=== PATIENT | male | born 1955 | race African-American/Black ===

== ENCOUNTER 2016-10-28 00:02 | Emergency (ER) | payer MEDICAID ==
[~2016-10-28] VITALS: Ht 170.2 cm; Wt 82.0 kg
[2016-10-28] MEDS ORDERED: HYDROCODONE/ACETAMINOPHEN 5/325MG TABLET PO ONE (02:45)
[2016-10-28 03:00] LABS: EOSINOPHILS % 2.4 % (0.0-5.0); HEMATOCRIT. 41.7 % (42.0-52.0); HEMOGLOBIN. 14.5 g/dL (14.0-18.0); LYMPHOCYTES % 23.5 % (20.0-50.0); MEAN CORPUSCULAR HEMOGLOBIN 31.9 pg (28.0-32.0); MEAN CORPUSCULAR VOLUME 91.9 fL (80.0-94.0); MEAN PLATELET VOLUME 8.9 fl (7.4-10.4); MONOCYTES % 8.2 % (2.0-8.0); NEUTROPHILS % 64.9 % (40.0-76.0); PLATELET 230 x1000/uL (130-400); RED BLOOD CELL COUNT 4.54 mill/uL (4.7-6.1); RED CELL DISTRIBUTION WIDTH 13.7 % (11.6-14.6)
[2016-10-28 03:11] LABS: CARBON DIOXIDE 27 mEq/L (21-32); CHLORIDE 103 mEq/L (98-107)
[2016-10-28 05:29] VITALS: BP 115/77
== END 2016-10-28 05:30 | disposition home or self-care (01) ==
LOC: ER 00:03
DX: M79.672 Pain in left foot (principal); F17.200 Nicotine dependence, unspecified, uncomplicated
CPT/HCPCS: 36415; 73630; 80048; 85025; 93971; 99285; Z7610

== ENCOUNTER 2016-12-12 03:05 | Emergency (ER) | payer MEDICAID ==
[~2016-12-12] VITALS: Ht 172.7 cm; Wt 79.5 kg
[2016-12-12 08:17] VITALS: BP 122/82
[2016-12-12] MEDS ORDERED: LEVOFLOXACIN 500MG TABLET PO ONE (09:15)
== END 2016-12-12 09:47 | disposition home or self-care (01) ==
LOC: ER 03:10
DX: J18.9 Pneumonia, unspecified organism (principal); R03.0 Elevated blood-pressure reading, without diagnosis of hypertension; F17.210 Nicotine dependence, cigarettes, uncomplicated; F15.10 Other stimulant abuse, uncomplicated; F10.10 Alcohol abuse, uncomplicated; Z98.890 Other specified postprocedural states
CPT/HCPCS: 71010; 99283; Z7610

== ENCOUNTER 2017-03-21 19:33 | Emergency (ER) | payer MEDICAID ==
[~2017-03-21] VITALS: Ht 177.8 cm; Wt 88.0 kg
[2017-03-21] MEDS ORDERED: FLUORESCEIN SODIUM 1MG/STRIP OP ONE (20:45)
[2017-03-21] MEDS ORDERED: TETRACAINE 0.5% OPHTH DROPS 4ML OP ONE (20:45)
[2017-03-21] MEDS ORDERED: HYDROCODONE/ACETAMINOPHEN 10/325MG TABLET PO ONE (21:15)
[2017-03-22 00:15] VITALS: BP 125/85
== END 2017-03-22 00:55 | disposition home or self-care (01) ==
LOC: ER 19:47
DX: Z77.098 Contact with and (suspected) exposure to other hazardous, chiefly nonmedicinal, chemicals (principal); H57.8 Other specified disorders of eye and adnexa; J45.909 Unspecified asthma, uncomplicated; F15.10 Other stimulant abuse, uncomplicated; Z98.890 Other specified postprocedural states
CPT/HCPCS: 99284; A4217; J7030; Z7610

== ENCOUNTER 2017-03-22 02:25 | Emergency (ER) | payer MEDICAID ==
[~2017-03-22] VITALS: Ht 177.8 cm; Wt 88.0 kg
[2017-03-22] MEDS ORDERED: ONDANSETRON HCL 4MG/2ML VIAL IV STA (02:28)
[2017-03-22 02:51] LABS: BASOPHILS % 0.6 % (0.0-2.0); EOSINOPHILS % 2.9 % (0.0-5.0); HEMATOCRIT. 45.4 % (42.0-52.0); HEMOGLOBIN. 15.5 g/dL (14.0-18.0); LYMPHOCYTES % 28.1 % (20.0-50.0); MEAN CORPUSCULAR HEMOGLOBIN 31.7 pg (28.0-32.0); MEAN CORPUSCULAR VOLUME 92.9 fL (80.0-94.0); MEAN PLATELET VOLUME 8.7 fl (7.4-10.4); MONOCYTES % 10.7 % (2.0-8.0); NEUTROPHILS % 57.7 % (40.0-76.0); PLATELET 239 x1000/uL (130-400); RED BLOOD CELL COUNT 4.89 mill/uL (4.7-6.1)
[2017-03-22 03:00] LABS: CARBON DIOXIDE 30 mEq/L (21-32); CHLORIDE 103 mEq/L (98-107)
[2017-03-22 06:18] VITALS: BP 126/96
== END 2017-03-22 06:27 | disposition home or self-care (01) ==
LOC: ER 02:26
DX: R11.2 Nausea with vomiting, unspecified (principal); J45.909 Unspecified asthma, uncomplicated; F17.200 Nicotine dependence, unspecified, uncomplicated; F15.10 Other stimulant abuse, uncomplicated; Z98.890 Other specified postprocedural states
CPT/HCPCS: 36415; 71010; 74000; 80053; 83690; 85025; 96374; 99285; J2405; Z7610

== ENCOUNTER 2017-07-25 21:23 | Emergency (ER) | payer MEDICAID ==
[~2017-07-25] VITALS: Ht 172.7 cm; Wt 81.0 kg
[2017-07-25] MEDS ORDERED: PREDNISONE 20MG TABLET PO ONE (23:15)
[2017-07-25] MEDS ORDERED: ACETAMINOPHEN WITH CODEINE 300/30MG TABLET PO ONE (23:15)
[2017-07-26] MEDS ORDERED: TETRACAINE 0.5% OPHTH DROPS 4ML BOTHEYE ONE (02:00)
[2017-07-26] MEDS ORDERED: FLUORESCEIN SODIUM 1MG/STRIP BOTHEYE ONE (04:00)
[2017-07-26 09:00] VITALS: BP 128/82
== END 2017-07-26 09:25 ==
LOC: ER 21:30
DX: T26.62XA Corrosion of cornea and conjunctival sac, left eye, initial encounter (principal); T26.61XA Corrosion of cornea and conjunctival sac, right eye, initial encounter; M25.531 Pain in right wrist; M79.631 Pain in right forearm; M25.521 Pain in right elbow; Y93.89 Activity, other specified; Y00.XXXA Assault by blunt object, initial encounter; Y92.89 Other specified places as the place of occurrence of the external cause; Y99.8 Other external cause status; F15.10 Other stimulant abuse, uncomplicated
CPT/HCPCS: 29125; 73080; 73090; 73110; 73130; 99285; J7512

== ENCOUNTER 2017-07-29 22:13 | Emergency (ER) | payer MEDICAID ==
[~2017-07-29] VITALS: Ht 172.7 cm; Wt 79.5 kg
[2017-07-30 00:28] LABS: CHLORIDE 103 mEq/L (98-107)
[2017-07-30 00:31] LABS: BASOPHILS % 0.4 % (0.0-2.0); EOSINOPHILS % 2.2 % (0.0-5.0); HEMATOCRIT. 47.8 % (42.0-52.0); HEMOGLOBIN. 16.2 g/dL (14.0-18.0); LYMPHOCYTES % 21.1 % (20.0-50.0); MEAN CORPUSCULAR HEMOGLOBIN 32.1 pg (28.0-32.0); MEAN CORPUSCULAR VOLUME 94.6 fL (80.0-94.0); MONOCYTES % 8.7 % (2.0-8.0); NEUTROPHILS % 67.6 % (40.0-76.0); PLATELET 270 x1000/uL (130-400); RED BLOOD CELL COUNT 5.05 mill/uL (4.7-6.1); RED CELL DISTRIBUTION WIDTH 13.8 % (11.6-14.6)
[2017-07-30 00:32] LABS: ETHANOL BLOOD < 10 mg/dL
[2017-07-30 03:24] LABS: CLARITY URINE CLEAR (CLEAR); COLOR URINE YELLOW (YELLOW); KETONES URINE NEGATIVE (NEGATIVE); LEUKOCYTE ESTERASE URINE NEGATIVE (NEGATIVE); NITRITE URINE NEGATIVE (NEGATIVE); OCCULT BLOOD URINE NEGATIVE (NEGATIVE); PH URINE 5.5 (4.5-8.0); PROTEIN URINE 1+ (NEGATIVE); SPECIFIC GRAVITY URINE 1.034 (1.005-1.030)
[2017-07-30 03:33] LABS: *AMPHETAMINES SCREEN URINE PRESUMTIVE POSITIVE (NEGATIVE); *BARBITURATES SCREEN URINE NEGATIVE (NEGATIVE)
[2017-07-30 03:34] LABS: *BENZODIAZEPINES SCREEN URINE NEGATIVE (NEGATIVE); *COCAINE SCREEN URINE NEGATIVE (NEGATIVE); CANNABINOID URINE SCREEN NEGATIVE (NEGATIVE); METHADONE URINE SCREEN NEGATIVE (NEGATIVE); OPIATES URINE SCREEN NEGATIVE (NEGATIVE); PHENCYCLIDINE URINE SCREEN NEGATIVE (NEGATIVE)
[2017-07-30] MEDS ORDERED: KETOROLAC 30MG/ML VIAL IM ONE (13:15)
[2017-07-30] MEDS ORDERED: MAGNESIUM/ALUMINUM HYDROXIDE/SIMETHICONE 30ML UDC PO ONE (15:45)
[2017-07-31 15:52] VITALS: BP 148/92
== END 2017-07-31 16:00 | disposition home or self-care (01) ==
LOC: ER 22:13
DX: R45.851 Suicidal ideations (principal); F33.3 Major depressive disorder, recurrent, severe with psychotic symptoms; F20.9 Schizophrenia, unspecified; F31.9 Bipolar disorder, unspecified; F15.10 Other stimulant abuse, uncomplicated; F10.10 Alcohol abuse, uncomplicated; Y90.0 Blood alcohol level of less than 20 mg/100 ml; F17.210 Nicotine dependence, cigarettes, uncomplicated
CPT/HCPCS: 36415; 80053; 80305; 80307; 80329; 81003; 84484; 85025; 93005; 96372; 99285; G0482; J1885

== ENCOUNTER 2017-08-25 22:17 | Emergency (ER) | payer MEDICAID ==
[~2017-08-25] VITALS: Ht 172.7 cm; Wt 81.0 kg
[2017-08-26] MEDS ORDERED: IBUPROFEN 800MG TABLET PO ONE (04:15)
[2017-08-26] MEDS ORDERED: ACETAMINOPHEN 325MG TABLET PO ONE (04:15)
[2017-08-26] MEDS ORDERED: ONDANSETRON HCL 4MG/2ML VIAL IV STA (05:00)
[2017-08-26] MEDS ORDERED: MORPHINE SULFATE 4 MG/ML CPJ (NOT FOR IM USE) IV STA (05:00)
[2017-08-26 05:39] LABS: HEMATOCRIT. 42.8 % (42.0-52.0); HEMOGLOBIN. 14.6 g/dL (14.0-18.0); MEAN CORPUSCULAR HEMOGLOBIN 31.8 pg (28.0-32.0); MEAN CORPUSCULAR VOLUME 93.3 fL (80.0-94.0); MEAN PLATELET VOLUME 8.6 fl (7.4-10.4); PLATELET 283 x1000/uL (130-400); RED BLOOD CELL COUNT 4.59 mill/uL (4.7-6.1); RED CELL DISTRIBUTION WIDTH 13.3 % (11.6-14.6)
[2017-08-26 05:40] LABS: CLARITY URINE CLEAR (CLEAR); COLOR URINE YELLOW (YELLOW); KETONES URINE NEGATIVE (NEGATIVE); LEUKOCYTE ESTERASE URINE NEGATIVE (NEGATIVE); NITRITE URINE NEGATIVE (NEGATIVE); OCCULT BLOOD URINE NEGATIVE (NEGATIVE); PROTEIN URINE NEGATIVE (NEGATIVE); SPECIFIC GRAVITY URINE 1.013 (1.005-1.030)
[2017-08-26 05:43] LABS: CHLORIDE 103 mEq/L (98-107)
[2017-08-26 05:45] LABS: INR 1.2; PROTHROMBIN TIME 12.2 sec (9.4-11.6)
[2017-08-26 05:55] LABS: *AMPHETAMINES SCREEN URINE PRESUMTIVE POSITIVE (NEGATIVE); *BARBITURATES SCREEN URINE NEGATIVE (NEGATIVE); *BENZODIAZEPINES SCREEN URINE NEGATIVE (NEGATIVE); *COCAINE SCREEN URINE NEGATIVE (NEGATIVE)
[2017-08-26 05:56] LABS: CANNABINOID URINE SCREEN NEGATIVE (NEGATIVE); METHADONE URINE SCREEN NEGATIVE (NEGATIVE); OPIATES URINE SCREEN NEGATIVE (NEGATIVE); PHENCYCLIDINE URINE SCREEN NEGATIVE (NEGATIVE)
[2017-08-26 06:45] LABS: PLATELET ESTIMATE NORMAL
[2017-08-26 08:17] VITALS: BP 122/78
== END 2017-08-26 08:47 | disposition home or self-care (01) ==
LOC: ER 22:28 → CANBEDREQ 08-26 10:09
DX: R07.9 Chest pain, unspecified (principal); M54.5 Low back pain; R06.02 Shortness of breath; F17.200 Nicotine dependence, unspecified, uncomplicated; Z87.01 Personal history of pneumonia (recurrent)
CPT/HCPCS: 36415; 71045; 74176; 80053; 80305; 81003; 83690; 83880; 84484; 85025; 85610; 93005; 96374; 96375; 99285; J2270; J2405; Z7610

== ENCOUNTER 2017-11-12 00:08 | Emergency (ER) | payer MEDICAID ==
[~2017-11-12] VITALS: Ht 172.7 cm; Wt 82.0 kg
[2017-11-12] MEDS ORDERED: KETOROLAC 30MG/ML VIAL IM ONE (03:30)
[2017-11-12] MEDS ORDERED: LIDOCAINE HCL 1% 20ML VIAL (Pyxis) INJ INFIL ONE (04:15)
[2017-11-12] MEDS ORDERED: LIDOCAINE HCL/PF 1% 10 MG/ML 5ML VIAL IJ NR (05:15)
[2017-11-12 06:32] VITALS: BP 121/79
== END 2017-11-12 06:34 | disposition home or self-care (01) ==
LOC: ER 01:47
DX: S63.114A Dislocation of metacarpophalangeal joint of right thumb, initial encounter (principal); F15.10 Other stimulant abuse, uncomplicated; F17.200 Nicotine dependence, unspecified, uncomplicated; Z98.49 Cataract extraction status, unspecified eye; Z87.81 Personal history of (healed) traumatic fracture; X58.XXXA Exposure to other specified factors, initial encounter; Y93.89 Activity, other specified; Y92.89 Other specified places as the place of occurrence of the external cause; Y99.8 Other external cause status
CPT/HCPCS: 26700; 73130; 96372; 99284; J1885; J3490; 29125; A4565

== ENCOUNTER 2017-11-13 04:16 | Emergency (ER) | payer MEDICAID ==
[~2017-11-13] VITALS: Ht 172.7 cm; Wt 82.0 kg
[2017-11-13 04:18] VITALS: BP 139/95
== END 2017-11-13 07:25 | disposition left against medical advice (07) ==
LOC: ER 07:22
DX: Z53.21 Procedure and treatment not carried out due to patient leaving prior to being seen by health care provider (principal)

== ENCOUNTER 2018-01-18 21:33 | Emergency (ER) | payer MEDICAID ==
[~2018-01-18] VITALS: Ht 167.6 cm; Wt 80.0 kg
[2018-01-18] MEDS ORDERED: IBUPROFEN 600MG TABLET PO ONE (22:45)
[2018-01-18 22:56] VITALS: BP 150/100
[2018-01-18 23:34] LABS: HEMATOCRIT. 43.6 % (42.0-52.0); HEMOGLOBIN. 14.8 g/dL (14.0-18.0); MEAN CORPUSCULAR HEMOGLOBIN 32.3 pg (28.0-32.0); MEAN PLATELET VOLUME 8.4 fl (7.4-10.4); PLATELET 261 x1000/uL (130-400); RED BLOOD CELL COUNT 4.58 mill/uL (4.7-6.1); RED CELL DISTRIBUTION WIDTH 13.6 % (11.6-14.6)
[2018-01-18 23:41] LABS: CHLORIDE 102 mEq/L (98-107)
[2018-01-19 00:56] LABS: PLATELET ESTIMATE NORMAL
== END 2018-01-19 00:49 | disposition left against medical advice (07) ==
LOC: ER 21:33
DX: K08.89 Other specified disorders of teeth and supporting structures (principal); F31.9 Bipolar disorder, unspecified; F20.9 Schizophrenia, unspecified; F17.200 Nicotine dependence, unspecified, uncomplicated; R50.81 Fever presenting with conditions classified elsewhere
CPT/HCPCS: 36415; 80048; 85025; 99284; Z7610